=== PATIENT | male | born 1975 | race Caucasian/White ===

== ENCOUNTER 2019-01-16 12:32 | Emergency (ER) | payer OTHER ==
[~2019-01-16] VITALS: Ht 182.9 cm; Wt 154.2 kg
[2019-01-16] MEDS ORDERED: METHADONE HCL10 MG PO (12:48)
[2019-01-16] MEDS ORDERED: OXYCODONE HCL10 MG PO (12:49)
[2019-01-16] MEDS ORDERED: METHYLPREDNISOLO4 M1 PO (17:20)
[2019-01-16] MEDS ORDERED: LIDODERM1 EACH TOP (17:20)
[2019-01-16] MEDS ORDERED: ROBAXIN-750750 MG PO (17:20)
== END 2019-01-16 17:59 | disposition home or self-care (01) ==
LOC: ED 12:32
DX: M54.5 Low back pain (principal); I10 Essential (primary) hypertension; F17.200 Nicotine dependence, unspecified, uncomplicated; Z88.8 Allergy status to other drugs, medicaments and biological substances
CPT/HCPCS: 96372; 99283; J1100; J1885

== ENCOUNTER 2022-05-26 16:07 | Emergency (ER) | payer MEDICARE, OTHER ==
[~2022-05-26] VITALS: Ht 182.9 cm; Wt 156.4 kg
[~2022-05-26 16:07] MED LIST: LIDODERM1 EACH TOP; METHADONE HCL10 MG PO; METHYLPREDNISOLO4 M1 PO; OXYCODONE HCL10 MG PO; ROBAXIN-750750 MG PO
[2022-05-26] MEDS ORDERED: CEPHALEXIN500 M1 PO (17:45)
== END 2022-05-26 18:05 | disposition home or self-care (01) ==
LOC: ED 16:07
DX: J02.9 Acute pharyngitis, unspecified (principal); I10 Essential (primary) hypertension; F17.200 Nicotine dependence, unspecified, uncomplicated; Z88.8 Allergy status to other drugs, medicaments and biological substances; Z79.899 Other long term (current) drug therapy
CPT/HCPCS: 36415; 70491; 80053; 85025; 87880; 96365; 96375; 99284-25; J0696; J1100; J1885; J7030; Q9967